=== PATIENT | female | born 1985 | race American Indian/Alaskan Native ===

== ENCOUNTER 2021-10-03 14:58 | Emergency (ER) | payer MEDICAID ==
[2021-10-03 15:09] VITALS: BP 137/81
[2021-10-03] MEDS ORDERED: CYCLOBENZAPRINE 10 MG TAB PO ONE (15:24)
[2021-10-03] MEDS ORDERED: ACETAMINOPHEN W/CODEINE 300-30 MG TAB PO ONE (15:25)
--- NOTE | 2021-10-03 15:25 | Emergency Department Report ---
ED Back Pain/Injury HPI - General Chief Complaint: Abdominal Pain Stated Complaint: BACK PAIN Time Seen by Provider: 10/03/21 15:18 Source: patient Limitations: No Limitations - History of Present Illness Initial Comments: 35 yof with no pmh presents to ed for evaluation of left mid back pain since Sunday. She denies injury but states that she did some traveling this weekend and was more active than usual. She denies fever, dysuria, and vaginal discharge and states that pain is worse with movement and stretching. MD Complaint: back pain -: Gradual, days(s) (2) Similar Symptoms Previously: No Radiation: none Severity: severe Severity scale (0 -10): 8 Quality: aching Consistency: constant Worsens With: movement, sitting upright Associated Symptoms: denies: confusion, weakness, chest pain, numbness, difficulty walking, cough, difficulty urinating, diaphoresis, incontinence, fever/chills, constipation, headaches, abdominal pain, loss of appetite, malaise, nausea/vomiting, rash, seizure, shortness of breath, syncope - Related Data Previous Rx's Medication Instructions Recorded Last Taken Type Cyclobenzaprine [Flexeril] 10 mg PO TID PRN #21 tab 10/03/21 Unknown Rx Lidocaine [Lidoderm] 1 each TP DAILY PRN #10 patch 10/03/21 Unknown Rx Naproxen [Naprosyn] 500 mg PO BID #14 tab 10/03/21 Unknown Rx Allergies Allergy/AdvReac Type Severity Reaction Status Date / Time No Known Allergies Allergy Verified 10/03/21 15:09 ED Review of Systems ROS: Stated complaint: BACK PAIN Other details as noted in HPI Comment: All other systems reviewed and negative Constitutional: denies: chills, fever Eyes: denies: eye pain, eye discharge ENT: denies: ear pain, throat pain, dental pain Respiratory: denies: cough, orthopnea, shortness of breath, SOB with exertion, SOB at rest Cardiovascular: denies: chest pain, palpitations, dyspnea on exertion, orthopnea, edema, syncope, paroxysmal nocturnal dyspnea Endocrine: no symptoms reported Gastrointestinal: denies: abdominal pain, nausea, vomiting, diarrhea, constipation, hematemesis, melena, hematochezia Genitourinary: denies: urgency, dysuria, frequency, hematuria, discharge, abnormal menses Musculoskeletal: back pain. denies: joint swelling, arthralgia, myalgia Skin: denies: rash, lesions Psychiatric: denies: anxiety, depression Hematological/Lymphatic: denies: easy bleeding, easy bruising ED Past Medical Hx - Past Medical History Previous Medical History?: No - Medications Home Medications: Home Medications Medication Instructions Recorded Confirmed Last Taken Type Cyclobenzaprine [Flexeril] 10 mg PO TID PRN #21 tab 10/03/21 Unknown Rx Lidocaine [Lidoderm] 1 each TP DAILY PRN #10 patch 10/03/21 Unknown Rx Naproxen [Naprosyn] 500 mg PO BID #14 tab 10/03/21 Unknown Rx ED Physical Exam - General Limitations: No Limitations General appearance: alert, in no apparent distress - Head Head exam: Present: atraumatic, normocephalic - Eye Eye exam: Present: normal appearance. Absent: conjunctival injection - Neck Neck exam: Present: normal inspection, full ROM. Absent: tenderness, lymphadenopathy - Respiratory Respiratory exam: Present: normal lung sounds bilaterally. Absent: respiratory distress, wheezes, rales, rhonchi, stridor - Cardiovascular Cardiovascular Exam: Present: regular rate, normal heart sounds - GI/Abdominal GI/Abdominal exam: Present: soft. Absent: distended, tenderness, guarding, rebound, rigid, normal bowel sounds - Extremities Exam Extremities exam: Present: normal inspection. Absent: tenderness - Back Exam Back exam: Present: normal inspection, tenderness (left mid), other (no saddle anesthesia noted. ). Absent: CVA tenderness (R), CVA tenderness (L), muscle spasm, paraspinal tenderness, vertebral tenderness - Neurological Exam Neurological exam: Present: alert, oriented X3, CN II-XII intact, normal gait, reflexes normal. Absent: motor sensory deficit - Expanded Neurological Exam Expanded Patient oriented to: Present: person, place Speech: Present: fluid speech Ataxia: Absent: yes Motor strength exam: RUE: 5, LUE: 5, RLE: 5, LLE: 5 Best Eye Response ([place]): (4) open spontaneously Best Motor Response ([place]): (6) obeys commands Best Verbal Response ([place]): (5) oriented [place] Total: 15 - Psychiatric Psychiatric exam: Present: normal affect, normal mood - Skin Skin exam: Present: warm, dry, intact, normal color ED Course Vital Signs 10/03/21 15:06 Temperature 98.0 F Pulse Rate 64 Respiratory 16 Rate Blood Pressure 137/81 O2 Sat by Pulse 100 Oximetry ED Medical Decision Making - Medical Decision Making 35 yof with no pmh presents to ed for evaluation of left mid back pain since Sunday. She denies injury but states that she did some traveling this weekend and was more active than usual. She denies fever, dysuria, and vaginal discharge and states that pain is worse with movement and stretching. UA negative for UTI and test negative. Patient had some improvement after medications and pain worse with movement and on palpation, therefore patient will be treated for musculoskeletal thoracic back pain with anti inflammatories, muscle relaxants, and lidoderm patch. She was advised to take mediations as prescribed and follow up with pcp if no improvement or worsening symptoms. She verbalized understanding of and agreement with plan of care. Critical care attestation.: If time is entered above; I have spent that time in minutes in the direct care of this critically ill patient, excluding procedure time. ED Disposition Clinical Impression: Back pain Qualifiers: Back pain location: thoracic back pain Chronicity: acute Back pain laterality: left Qualified Code(s): M54.6 - Pain in thoracic spine Disposition: HOME / SELF CARE / HOMELESS Is pt being admited?: No Does the pt Need Aspirin: No Condition: Stable Instructions: Acute Back Pain, Adult, Abdominal Pain (ED) Additional Instructions: Take medication as prescribed. Follow-up with primary care provider for further evaluation and management. Return to the emergency department for any concerning symptoms. Prescriptions: Cyclobenzaprine [Flexeril] 10 mg PO TID PRN #21 tab PRN Reason: Muscle Spasm Lidocaine [Lidoderm] 1 each TP DAILY PRN #10 patch PRN Reason: Pain, Moderate (4-6) Naproxen [Naprosyn] 500 mg PO BID #14 tab Referrals: PRIMARY CAREMD [Primary Care Provider] - 3-5 Days SHREE DUNNE MD [Referring] - 3-5 Days Forms: Work/School Release Form(ED) Time of Disposition: 17:00
[2021-10-03 16:12] LABS: HCG Qualitative,Urine Negative (Negative)
[2021-10-03 16:46] LABS: Bilirubin,Urine NEG (Negative); Blood,Urine NEG (Negative); Color,Urine Yellow (Yellow); Mucus,Urine 1+ /HPF; Protein,Urine <15 mg/dL mg/dL (Negative)
== END 2021-10-03 17:45 | disposition home or self-care (01) ==
LOC: ED 14:58
DX: M54.9 Dorsalgia, unspecified (principal)
CPT/HCPCS: 81001; 81025; 99283